=== PATIENT | female | born 1975 | race Asian ===

== ENCOUNTER 2021-07-24 07:24 | Day surgery (SDC) | payer BC, OTHER ==
[2021-07-24] MEDS: Ringers Lactate 1,000 ML IV ONE ×2 (07:50→08:41)
[2021-07-24 08:17] LABS: Specific Gravity 1.025 (1.005-1.030)
[2021-07-24] MEDS ORDERED: LIDOCAINE 1% MPF 5 ML VIAL ONE (08:42)
[2021-07-24] MEDS ORDERED: propofoL 200 MG/20 ML VIAL IV ONE ×2 (08:42)
--- NOTE | 2021-07-24 09:34 | OP ---
Surgeon: Mark Garcia MD Procedure Performed: Colonoscopy. Indication For Procedure: High risks screening, family history of colon cancer. Plan For Anesthesia: Monitored anesthesia care. Complexity: Average. Technique: After obtaining informed consent from the patient, explaining risks and complications, wh ich include, but are not limited to bleeding, infection, perforation, anesthesia complication, the pa tient was placed in the left lateral position and sedation was given. A digital rectal exam was perf ormed, which revealed a small external hemorrhoid. Then, the scope was inserted into the rectum and carefully guided up till the cecum. The cecum was identified by the ileocecal valve and appendiceal orifice. Gradually, scope was withdrawn and while carefully examining the mucosa. Scope withdrawal time was 12 minutes. Quality of prep was good. Findings: On rectal exam, small external hemorrhoids. Retroflexion also revealed grade 1 internal h emorrhoids. The entire colon was redundant. In the sigmoid colon, a small sessile polyp around 4 mm in size was seen and this was removed by hot biopsy polypectomy. Complications: None. Tolerance To Anesthesia: Excellent. Postoperative Diagnosis: Small polyp. Plan: 1.Await pathology results. 2.Follow up in the GI clinic in 2 weeks. 3.Repeat colonoscopy in 3 years due to high risk. US/MODL Voice ID: [id number] Report ID: [id number]
[2021-07-24 09:45] VITALS: O2SAT 100
[2021-07-24 09:47] VITALS: BP 99/62; TEMP 97.6
== END 2021-07-24 09:41 | disposition home or self-care (01) ==
LOC: OR 07:24
PROVIDERS: ATTEND Internal Medicine Gastroenterology
PROC: 0DBN8ZX Excision of Sigmoid Colon, Via Natural or Artificial Opening Endoscopic, Diagnostic (ICD-10-PCS; principal; 2021-07-24 08:30)
DX: Z12.11 Encounter for screening for malignant neoplasm of colon (principal); Z20.822 Contact with and (suspected) exposure to COVID-19; D36.9 Benign neoplasm, unspecified site; Z80.0 Family history of malignant neoplasm of digestive organs; K64.4 Residual hemorrhoidal skin tags; K64.8 Other hemorrhoids
CPT/HCPCS: 81025; 88305; 45384; U0003; J2704 ×2; J7120